=== PATIENT | female | born 1975 | race Caucasian/White ===

== ENCOUNTER 2017-11-07 13:50 | Emergency (ER) | payer OTHER ==
[2017-11-07 13:55] VITALS: BP 118/74; PULSE 96; TEMP 99; BMI 26.6
--- NOTE | 2017-11-07 14:06 | PDOC ---
History of Present Illness - General History Source: Patient Exam Limitations: No Limitations - History of Present Illness Initial Comments: 11/07/17 14:30 The patient is a 42 year old female with no significant PMH who presents to the emergency department with abdominal pain since yesterday. The patient describes the abdominal pain as sudden onset, persistent dull pain, 7/10 in severity, and localized in the right lower quadrant. The patient is also complaining of associated bloatedness and decreased appetite. The patient states it is eleven days after her menstrual period. Patient states the abdominal pain has significantly improved since last night. The patient denies chest pain, shortness of breath, headache and dizziness. Denies fever, chills, nausea, vomit, diarrhea and constipation. Denies dysuria, frequency, urgency and hematuria. Allergies: NKA Past surgical history:None reported. Social history: No reported drug, alcohol, or cigarette use. <Katey Hood - Last Filed: 11/07/17 14:42> <Ginger Barboza - Last Filed: 11/07/17 16:06> - General Chief Complaint: Pain, Acute Stated Complaint: ABD PAIN Time Seen by Provider: 11/07/17 13:51 Past History <Katey Hood - Last Filed: 11/07/17 14:42> - Past Medical History COPD: No Other medical history: DENIES - Suicide/Smoking/Psychosocial Hx Smoking History: Never smoked Have you smoked in the past 12 months: No Information on smoking cessation initiated: No Hx Alcohol Use: No Substance Use Type: None <Ginger Barboza - Last Filed: 11/07/17 16:06> - Past Medical History Allergies/Adverse Reactions: Allergies Allergy/AdvReac Type Severity Reaction Status Date / Time No Known Allergies Allergy Verified 11/07/17 13:51 Home Medications: Ambulatory Orders NK [No Known Home Medication] 11/07/17 Review of Systems - Review of Systems Able to Perform ROS?: Yes Comments:: 11/07/17 14:42 GENERAL/CONSTITUTIONAL: No fever or chills. No weakness. HEAD, EYES, EARS, NOSE AND THROAT: No change in vision. No ear pain or discharge. No sore throat. CARDIOVASCULAR: No chest pain or shortness of breath. RESPIRATORY: No cough, wheezing, or hemoptysis. GASTROINTESTINAL: (+) Right lower quadrant pain. No nausea, vomiting, diarrhea or constipation. GENITOURINARY: No dysuria, frequency, or change in urination. MUSCULOSKELETAL: No joint or muscle swelling or pain. No neck or back pain. SKIN: No rash NEUROLOGIC: No headache, vertigo, loss of consciousness, or change in strength/ sensation. ENDOCRINE: No increased thirst. No abnormal weight change. HEMATOLOGIC/LYMPHATIC: No anemia, easy bleeding, or history of blood clots. ALLERGIC/IMMUNOLOGIC: No hives or skin allergy. <Katey Hood - Last Filed: 11/07/17 14:42> *Physical Exam - Vital Signs Last Vital Signs Temp Pulse Resp BP Pulse Ox 99 F 96 H 18 118/74 100 11/07/17 13:50 11/07/17 13:50 11/07/17 13:50 11/07/17 13:50 11/07/17 13:50 <Katey Hood - Last Filed: 11/07/17 14:42> - Vital Signs Last Vital Signs Temp Pulse Resp BP Pulse Ox 99 F 96 H 18 118/74 100 11/07/17 13:50 11/07/17 13:50 11/07/17 13:50 11/07/17 13:50 11/07/17 13:50 - Physical Exam Comments: GENERAL: Awake, alert, and fully oriented, in no acute distress. Well- appearing. HEAD: No signs of trauma EYES: PERRLA, EOMI, sclera anicteric, conjunctiva clear ENT: Auricles normal inspection, hearing grossly normal, nares patent, oropharynx clear without exudates. Moist mucosa NECK: Normal ROM, supple, no lymphadenopathy, JVD, or masses LUNGS: Breath sounds equal, clear to auscultation bilaterally. No wheezes, and no crackles HEART: Regular rate and rhythm, normal S1 and S2, no murmurs, rubs or gallops ABDOMEN: Soft, +RLQ tenderness, normoactive bowel sounds. No guarding, no rebound. No masses EXTREMITIES: Normal range of motion, no edema. No clubbing or cyanosis. No cords, erythema, or tenderness NEUROLOGICAL: Cranial nerves II through XII grossly intact. Normal speech, normal gait SKIN: Warm, Dry, normal turgor, no rashes or lesions noted. <Ginger Barboza - Last Filed: 11/07/17 16:06> ED Treatment Course - ADDITIONAL ORDERS Additional order review: Laboratory Results 11/07/17 13:30 Urine Color Alisa Urine Appearance Clear Urine pH 5.5 Ur Specific Jamul 1.010 Urine Protein Negative Urine Glucose (UA) Negative Urine Ketones Negative Urine Blood Negative Urine Nitrite Negative Urine Bilirubin Negative Urine Urobilinogen 0.2 Ur Leukocyte Esterase Negative Urine HCG, Qual Negative <Katey Hood - Last Filed: 11/07/17 14:42> - LABORATORY CBC & Chemistry Diagram: 11/07/17 14:46 11/07/17 14:46 <Ginger Barboza - Last Filed: 11/07/17 16:06> Medical Decision Making - Medical Decision Making 11/07/17 14:21 Pt presents with RLQ abd pain, improving since last night. Suspect this is ruptured ovarian cyst vs torsion, however, appendicitis is on the differential as well (less likely, as she has normal appetite, no fever, and is well- appearing). Will obtain ultrasound to further evaluate. 11/07/17 16:03 Sono results d/w patient. R ovarian cyst is the most likely explanation for her pain, as she has been improving since it started. Her WBC is normal, she has no fever/nausea/vomiting. She has been tolerating PO. This is much more likely to be ovarian cyst than appendicitis, and patient prefers to avoid radiation exposure. As it does not appear to be necessary at this time, will not obtain CT. I counseled her that if her symptoms worsen or if she develops fever, vomiting, or any other concerning symptoms, return to the ED immediately for CT. <Ginger Barboza - Last Filed: 11/07/17 16:06> *DC/Admit/Observation/Transfer - Attestations Scribe Attestion: 11/07/17 14:42 Documentation prepared by Katey Hood, acting as medical technologist chief for Ginger Barboza MD. <Katey Hood - Last Filed: 11/07/17 14:42> - Discharge Dispostion Decision to Admit order: No <Ginger Barboza - Last Filed: 11/07/17 16:06> Diagnosis at time of Disposition: Ovarian cyst Qualifiers: Laterality: right Qualified Code(s): N83.201 - Unspecified ovarian cyst, right side - Discharge Dispostion Disposition: HOME Condition at time of disposition: Stable - Patient Instructions Printed Discharge Instructions: DI for Ovarian Cyst
[2017-11-07 14:08] LABS: PH,URINE 5.5 (4.5-8); URINE APPEARANCE Clear; URINE BILIRUBIN Negative (NEGATIVE); URINE BLOOD Negative (NEGATIVE); URINE GLUCOSE (UA) Negative (NEGATIVE); URINE KETONE Negative (NEGATIVE); URINE LEUK ESTERASE Negative (NEGATIVE); URINE NITRITE Negative (NEGATIVE); URINE PROTEIN Negative (NEGATIVE); URINE UROBILINOGEN 0.2 (0.2-1.0)
[2017-11-07 14:10] LABS: URINE COLOR AMBER
[2017-11-07 14:24] LABS: HCG,QUALITATIVE URINE Negative
[2017-11-07 14:51] LABS: BASO % 0.4 % (0-2.0); EOS % 0.5 % (0-4.5); HEMOGLOBIN 13.3 GM/dl (10.7-15.3); LYMPH % 17.5 % (8-40); MCH 28.7 pg (25.7-33.7); MCHC 34.2 g/dl (32.0-36.0); MEAN CELL VOLUME 84.1 fl (80-96); MEAN PLT VOLUME 9.5 fl (7.5-11.1); MONO % 5.5 % (3.8-10.2); NEUT % 76.1 % (42.8-82.8); PLATELET COUNT 249 K/MM3 (134-434); RBC 4.64 M/mm3 (3.60-5.2); RDW 12.7 % (11.6-15.6); WHITE BLOOD COUNT 11.3 K/mm3 (4.0-10.8)
[2017-11-07 15:00] LABS: ALBUMIN 4.4 g/dl (3.5-5.0); ALK PHOS 53 U/L (32-92); ANION GAP 9 (8-16); BILIRUBIN,TOTAL 0.5 mg/dl (0.2-1.0); BLOOD UREA NITROGEN 11 mg/dl (7-18); CALCIUM 9.6 mg/dl (8.4-10.2); CHLORIDE 100 mmol/L (98-107); CO2 27 mmol/L (22-28); GLUCOSE,RANDOM 105 mg/dl (74-106); POTASSIUM 3.8 mmol/L (3.5-5.1); SGOT/AST 25 U/L (10-42); SGPT/ALT 27 U/L (10-40); SODIUM 136 mmol/L (136-145); TOT PROT 7.3 g/dl (6.4-8.3)
[2017-11-07 15:05] LABS: CREATININE < 0.8 mg/dl (0.6-1.3)
[2017-11-07 15:40] LABS: LIPASE 173 U/L (73-393)
== END 2017-11-07 16:15 | disposition home or self-care (01) ==
LOC: FER 13:50
DX: N83.201 Unspecified ovarian cyst, right side (principal)
CPT/HCPCS: 36415; 76705-TC; 76856-TC; 80053; 81003; 83690; 84703; 85025; 99283-25

== ENCOUNTER 2023-06-16 10:35 | Emergency (ER) | payer OTHER ==
[2023-06-16 10:40] VITALS: BP 166/80; PULSE 102; RESP 16; TEMP 100.3; BMI 24.9
[2023-06-16] MEDS ORDERED: DEXAMETHASONE LIQUID 0.5 MG/5 ML PO ONE (10:50)
[2023-06-16] MEDS ORDERED: ACETAMINOPHEN 325 MG TABLET (FP) PO ONE (10:50)
[2023-06-16] MEDS ORDERED: ACETAMINOPHEN 325 MG TABLET (FP) ONE (10:51)
[2023-06-16] MEDS ORDERED: DEXAMETHASONE SOD PHOSPHATE 10 MG/1 ML VIAL ONE (10:52)
== END 2023-06-16 12:10 | disposition home or self-care (01) ==
LOC: FER 10:35
DX: J04.0 Acute laryngitis (principal); J02.8 Acute pharyngitis due to other specified organisms; R50.9 Fever, unspecified; R05.9 Cough, unspecified; Z20.822 Contact with and (suspected) exposure to COVID-19
CPT/HCPCS: 0241U-QW; 71046-TC-FY; 87651; 99284-25